=== PATIENT | female | born 1975 | race Two or more races ===

== ENCOUNTER 2018-10-09 05:15 | Day surgery (SDC) | payer BC ==
[2018-10-06 16:15] VITALS: BMI 25.2
[2018-10-09] MEDS ORDERED: MIDAZOLAM HCL 2 MG/2 ML SINGLE DOSE VIAL ONE ×2 (13:28→13:46)
[2018-10-09] MEDS ORDERED: PROPOFOL 20 ML ONE (13:28)
--- NOTE | 2018-10-09 13:36 | HP ---
History & Physical Update - History History: No Change - Physical Physical: No Change - Assessment Assessment: No Change - Plan Plan: No Change (agree with H&P from 10/06/18, for LEEP due to cervical dysplasia)
[2018-10-09] MEDS ORDERED: IBUPROFEN 800 MG/8 ML IJ IVPB PRN (14:07)
[2018-10-09] MEDS ORDERED: ACETAMINOPHEN 325 MG TABLET (FP) PO PRN (14:07)
--- NOTE | 2018-10-09 14:07 | OP ---
Operative Note - Note: Operative Date: 10/09/18 Pre-Operative Diagnosis: cervical dysplasia Operation: LEEP Post-Operative Diagnosis: Same as Pre-op Surgeon: Jolly Harper Anesthesiologist/BREAKFAST ATTENDANT: Mago Vilchis Anesthesia: MAC Specimens Removed: cervical cone biopsy Estimated Blood Loss (mls): 5 Operative Report Dictated: Yes
[2018-10-09] MEDS ORDERED: LACTATED RINGERS SOLUTION 1,000 ML IV SCH (14:15)
[2018-10-09 16:35] VITALS: BP 120/64; PULSE 72; TEMP 97.6
--- NOTE | 2018-10-12 20:35 | OP ---
DATE OF OPERATION: 10/09/2018 PREOPERATIVE DIAGNOSIS: Cervical dysplasia. POSTOPERATIVE DIAGNOSIS: Cervical dysplasia. PROCEDURE: Loop electrocautery excision procedure cone biopsy. SURGEON: Jolly Harper MD ANESTHESIA: MAC by Dr. Vilchis. SPECIMENS REMOVED: Cervical cone biopsy. COMPLICATIONS: None. ESTIMATED BLOOD LOSS: 5 mL. COUNTS: Sponge, needle, and instrument count correct. DISPOSITION: Stable to PACU. BRIEF HISTORY AND PROCEDURE: Patient is a 42-year-old female who had been seen in the office, and after having an abnormal Pap smear and colposcopy, was found to have persistent cervical dysplasia. The patient was counseled on her options and a plan was made for a LEEP cone biopsy procedure. Consents for the procedure were signed in the office. She was then admitted to [facility] on October 09, 2018, where the consents were re-confirmed. The patient was then taken back to the operating room, placed in the dorsal lithotomy position and given MAC anesthesia. A hard timeout was performed. Next, a coated speculum was placed inside the vagina, and using a 2 x 1 cm large LEEP loop, a specimen was removed in 2 separate passes, first the anterior and then the posterior portion of the cervix, and sent to Pathology for permanent evaluation. The surgical bed was cauterized with rollerball cautery to achieve hemostasis. Monsel solution was applied. All instruments were removed from the vagina. Minimum bleeding was noted from the cervical site. Sponge and instrument count was reported to be correct. The patient was tolerating the procedure and recovering in stable condition in the PACU after the procedure. JOLLY HARPER DO /[id number]
--- NOTE | 2018-10-13 16:47 | PATH ---
Surgical Pathology Report Patient Name: JAZMYNE CALVERT [place]. Rec. #: [id number] /Age/Gender: 1975 (Age: 42) / F Account: [id number] Location: [facility] SURGICAL Taken: 10/09/2018 Received: 10/10/2018 Reported: 10/13/2018 Physicians: Jolly Harper M.D. Specimen(s) Received A: ANTERIOR PORTION OF THE CERVIX B: POSTERIOR PORTION OF THE CERVIX Clinical History Cervical dysplasia Final Diagnosis A. CERVIX, ANTERIOR PORTION, LOOP ELECTROSURGICAL EXCISION PROCEDURE (LEEP): CERVICAL SQUAMOUS AND ENDOCERVICAL MUCOSA WITH ACUTE CERVICITIS AND REACTIVE CHANGES. NO DYSPLASIA IDENTIFIED. TRANSFORMATION ZONE: PRESENT. B. CERVIX, POSTERIOR PORTION, LOOP ELECTROSURGICAL EXCISION PROCEDURE (LEEP): CERVICAL SQUAMOUS AND ENDOCERVICAL MUCOSA WITH LOW GRADE SQUAMOUS INTRAEPITHELIAL LESION IN A BACKGROUND OF MARKED ACUTE CERVICITIS. NO HIGH GRADE DYSPLASIA IDENTIFIED. SURGICAL RESECTION MARGINS: NEGATIVE FOR DYSPLASIA. TRANSFORMATION ZONE: PRESENT. Electronically Signed Jazmyne Booth M.D. Gross Description A. Received in formalin labeled "anterior portion of the cervix," is a 2.1 x 0.7 x 0.4 cm irregular, unoriented portion of soft tissue, consistent with a portion of cervix. The specimen is partially surfaced by a san-pink, shiny and glistening mucosa. The specimen is inked blue and serially sectioned. The specimen is entirely submitted in 2 cassettes. B. Received in formalin labeled "posterior portion of cervix," is a 1.6 x 1.0 x 0.3 cm irregular, unoriented portion of soft tissue, consistent with a portion of cervix. The specimen is partially surfaced by a san-pink, shiny and glistening mucosa. The specimen is inked blue and serially sectioned. The specimen is entirely submitted in 2 cassettes. 10/10/201810/10/2018
== END 2018-10-09 16:35 | disposition home or self-care (01) ==
LOC: JASU-SURG 05:15
PROVIDERS: ATTEND Obstetrics & Gynecology
PROC: 0UBC7ZX Excision of Cervix, Via Natural or Artificial Opening, Diagnostic (ICD-10-PCS; principal; 2018-10-09 13:30)
DX: N87.0 Mild cervical dysplasia (principal); N72 Inflammatory disease of cervix uteri
CPT/HCPCS: 36415; 84703; 86850; 86900; 86901; 88307-TC